=== PATIENT | female | born 1985 | race Hispanic/Latino ===

== ENCOUNTER 2018-10-21 19:51 | Emergency (ER) | payer SELFPAY ==
[2018-10-21] MEDS ORDERED: IPRATROPIUM/ALBUTEROL SULFATE 3 ML SOLUTION IH ONE (20:24)
[2018-10-21] MEDS ORDERED: ASPIRIN 325MG EC TAB 325 MG TABLET.DR PO ONE (20:33)
== END 2018-10-21 21:10 | disposition home or self-care (01) ==
LOC: EDH 19:51
DX: J98.01 Acute bronchospasm (principal); R07.89 Other chest pain; Z72.0 Tobacco use
CPT/HCPCS: 71045; 81025; 84484; 93005; 94640